=== PATIENT | female | born 1975 | race African-American/Black ===

== ENCOUNTER 2018-03-11 02:04 | Emergency (ER) | payer OTHER ==
[~2018-03-11] VITALS: Ht 170.2 cm; Wt 107.0 kg
[2018-03-11] MEDS ORDERED: SODIUM CHLORIDE 0.9% 1,000 ML IV ONE (05:14)
[2018-03-11] MEDS ORDERED: KETOROLAC 60MG/2ML VIAL IM STA (05:14)
[2018-03-11 06:02] LABS: BASOPHILS % 0.6 % (0.0-2.0); HEMATOCRIT. 38.3 % (36.0-48.0); HEMOGLOBIN. 12.9 g/dL (12.0-16.0); MEAN CORPUSCULAR HEMOGLOBIN 28.1 pg (28.0-32.0); MEAN CORPUSCULAR VOLUME 83.3 fL (81.0-99.0); MEAN PLATELET VOLUME 9.2 fl (7.4-10.4); MONOCYTES % 3.2 % (2.0-8.0); NEUTROPHILS % 86.2 % (40.0-76.0); PLATELET 265 x1000/uL (130-400); RED CELL DISTRIBUTION WIDTH 13.8 % (11.6-14.6)
[2018-03-11 06:07] LABS: CHLORIDE 109 mEq/L (98-107)
[2018-03-11 06:10] LABS: INR 1.1; PROTHROMBIN TIME 11.2 sec (9.1-11.1)
[2018-03-11] MEDS ORDERED: MORPHINE SULFATE 10 MG/ML CPJ IV ONE (06:45)
[2018-03-11] MEDS ORDERED: ONDANSETRON HCL 4MG/2ML INJ IV ONE (06:45)
[2018-03-11 07:02] LABS: CLARITY URINE CLEAR (CLEAR); COLOR URINE YELLOW (YELLOW); KETONES URINE 1+ (NEGATIVE); LEUKOCYTE ESTERASE URINE NEGATIVE (NEGATIVE); NITRITE URINE NEGATIVE (NEGATIVE); OCCULT BLOOD URINE NEGATIVE (NEGATIVE); PH URINE >=9.0 (4.5-8.0); PROTEIN URINE NEGATIVE (NEGATIVE); SPECIFIC GRAVITY URINE 1.015 (1.005-1.030)
[2018-03-11] MEDS ORDERED: IOHEXOL-300 100 ML BOTTLE ONE (07:56)
[2018-03-11] MEDS ORDERED: FAMOTIDINE 20MG/2ML VIAL IV ONE (09:15)
[2018-03-11 10:46] VITALS: BP 147/77
== END 2018-03-11 11:04 | disposition home or self-care (01) ==
LOC: ER 03:15
DX: R10.13 Epigastric pain (principal); F12.10 Cannabis abuse, uncomplicated; I11.9 Hypertensive heart disease without heart failure; R11.10 Vomiting, unspecified; Z98.84 Bariatric surgery status; Z98.890 Other specified postprocedural states
CPT/HCPCS: 36415; 71045; 74177; 76705; 80053; 81003; 81025; 83690; 85025; 85610; 93005; 96361; 96372; 96374; 96375; 99284; J1885; J2270; J2405; J3490; J7030; Q9967